=== PATIENT | female | born 2000 | race Caucasian/White ===

== ENCOUNTER → 2023-08-12 | Outpatient (REF) | LOC: M EMP 08:09 | PROVIDERS: ATTEND Family Medicine | DX: Z11.52 Encounter for screening for COVID-19 (principal) ==

== ENCOUNTER 2024-11-17 21:00 | Outpatient (CLI) | payer OTHER ==
[~2024-11-17] VITALS: Ht 165.1 cm; Wt 77.6 kg
[2024-11-17 21:15] VITALS: BP 147/76; O2SAT 96
[2024-11-17] MEDS ORDERED: PRENTAB9 PO (21:20)
[2024-11-17] MEDS ORDERED: PROC30TA PO (21:20)
[2024-11-17 21:31] VITALS: BP 117/69
[2024-11-17] MEDS ORDERED: HOME MED LIST COMPLETE! XX SCH (21:40)
[2024-11-17] MEDS: LR 1,000 ML IV ONE (22:13)
[2024-11-17 23:23] VITALS: BP 110/61
== END 2024-11-18 01:50 | disposition home or self-care (01) ==
LOC: M LDO 21:00
PROVIDERS: ATTEND Student in an Organized Health Care Education/Training Program
DX: O47.03 False labor before 37 completed weeks of gestation, third trimester (principal); Z3A.30 30 weeks gestation of pregnancy
CPT/HCPCS: 59025; 96360; G0463

== ENCOUNTER 2025-01-15 23:21 | Inpatient (IN) | payer OTHER ==
[~2025-01-15] VITALS: Ht 165.1 cm; Wt 81.5 kg
[~2025-01-15 23:21] MED LIST: PRENTAB9 PO; PROC30TA PO
[2025-01-15 23:41] VITALS: BP 131/93
[2025-01-16] VITALS (11 sets, daily range): BP systolic 106–139; BP diastolic 64–91; O2SAT 95–100
[2025-01-16 00:25] LABS: PLATELET COUNT, AUTOMATED 167 10^3/uL (150-450)
[2025-01-16] MEDS ORDERED: OXYTOCIN 30UNITS IN 0.9% NaCl 500ML IV BAG IV ONE (00:48)
[2025-01-16 01:21] LABS: HIV 1&2 SCREEN NEGATIVE (NEGATIVE)
[2025-01-16 01:30] LABS: HEPATITIS C VIRUS ABY INDEX 0.02 INDEX (<0.8)
[2025-01-16] MEDS ORDERED: LIDOCAINE 1% MDV 20 ML VIAL INFIL PRN (01:40)
[2025-01-16] MEDS ORDERED: CARBOPROST TROMETHAMINE 250 MCG/ML AMP IM PRN (01:40)
[2025-01-16] MEDS ORDERED: OXYTOCIN DRIP 30 UNITS in IV 1 EA IV PRN (01:40)
[2025-01-16] MEDS ORDERED: TRANEXAMIC ACID INJection 1,000 MG in NS 100 ML IV PRN (01:40)
[2025-01-16] MEDS ORDERED: METHYLERGONOVINE MALEATE 0.2 MG/ML 1 ML VIAL IM PRN (01:40)
[2025-01-16] MEDS ORDERED: MOM 30 ML SUSPENSION UDC PO PRN (01:50)
[2025-01-16] MEDS ORDERED: ACETAMINOPHEN 325 MG TAB PO PRN (01:50)
[2025-01-16] MEDS ORDERED: METHYLERGONOVINE MALEATE 0.2 MG TAB PO PRN (01:50)
[2025-01-16] MEDS ORDERED: RHOGAM 300MCG (1500IU) INJ IM SCH (01:50)
[2025-01-16] MEDS ORDERED: CALCIUM CARBONATE 500 MG CHEW U/D PO PRN (01:50)
[2025-01-16] MEDS ORDERED: ANUSOL HC CREAM 30 GM TOP PRN (01:50)
[2025-01-16] MEDS ORDERED: IBUPROFEN 600 MG TAB PO PRN (01:50)
[2025-01-16] MEDS: IBUPROFEN 800 MG TAB PO PRN (02:23)
[2025-01-16] MEDS: OXYTOCIN DRIP 30 UNITS in IV 1 EA IV SCH (02:34)
[2025-01-16] MEDS: METHYLERGONOVINE MALEATE 0.2 MG/ML 1 ML VIAL IM ONE (03:30)
[2025-01-16] MEDS: OXYTOCIN DRIP 30 UNITS in IV 1 EA IV ONE (05:00)
[2025-01-16] MEDS: PRENATAL VITAMINS CHEWABLE TABLET PO SCH (07:50)
[2025-01-16] MEDS: FERROUS SULFATE 325 MG TAB PO SCH (07:50)
[2025-01-16] MEDS: DIBUCAINE 1% OINTMENT 30 GM TOP PRN (13:38)
[2025-01-17] MEDS ORDERED: PILL CUTTER 1 EACH XX PRN (00:05)
[2025-01-17 05:18] VITALS: BP 118/73; O2SAT 96
[2025-01-17] MEDS: ACETAMINOPHEN 500 MG TAB PO PRN (06:10)
[2025-01-17] MEDS: DOCUSATE SODIUM 100 MG CAPSULE PO PRN (08:19)
[2025-01-17 10:00] VITALS: BP 121/78; O2SAT 99
[2025-01-17] MEDS: MEASLES,MUMPS,RUBELLA VACCINE INJ (MMR-II) SC.IMMUN ONE (12:14)
[2025-01-17 14:00] VITALS: BP 120/72; O2SAT 99
== END 2025-01-17 15:00 | disposition home or self-care (01) | DRG 807 ==
LOC: M LDO 23:21 → M LDI 23:49 → M OBS 01-16 02:39
PROVIDERS: ADMIT Advanced Practice Midwife; ATTEND Advanced Practice Midwife
PROC: 10E0XZZ Delivery of Products of Conception, External Approach (ICD-10-PCS; principal; 2025-01-16)
DX: O69.81X0 Labor and delivery complicated by cord around neck, without compression, not applicable or unspecified (principal); Z37.0 Single live birth; Z3A.39 39 weeks gestation of pregnancy

== ENCOUNTER → 2025-01-29 | Outpatient (REF) | payer OTHER ==
[2025-01-29 18:09] LABS: APPEARANCE, URINE CLOUDY (CLEAR); BACTERIA, URINE AUTO NEGATIVE (NEGATIVE); BILIRUBIN, URINE AUTO NEGATIVE (NEGATIVE); BLOOD, URINE BLOOD 3+ (NEGATIVE); GLUCOSE, URINE (UA) AUTO NEGATIVE (NEGATIVE); KETONE, URINE AUTO NEGATIVE (NEGATIVE); LEUKOCYTE ESTERASE, URINE AUTO TRACE (NEGATIVE); NITRITE, URINE AUTO NEGATIVE (NEGATIVE); PROTEIN, URINE AUTO 2+ mg/dL (NEGATIVE); RBC, URINE AUTO TNTC /HPF (0-3); SPECIFIC GRAVITY URINE AUTO 1.029 (1.002-1.035); SQUAMOUS EPITHELIAL CELL UR AU 2 /HPF (0-6); UROBILINOGEN, URINE AUTO 0.2 mg/dL (0.0-2.0); WBC, URINE AUTO 49 /HPF (0-3)
== END ==
LOC: M LAB REF 17:26
PROVIDERS: ATTEND Physician Assistant
DX: N39.0 Urinary tract infection, site not specified (principal)